=== PATIENT | female | born 1975 ===

== ENCOUNTER → 2019-01-03 21:38 | Outpatient (REF) | payer OTHER, SELFPAY ==
[2019-01-03 22:28] LABS: Add Manual Diff / Slide Review NO; Basophils Absolute Auto 0 /uL (0-100); Basophils Percent Auto 0.6 % (0-2); Eosinophils Absolute Auto 200 /uL (0-450); Eosinophils Percent Auto 3.3 % (2-4); Hematocrit 41.7 % (36-46); Hemoglobin 13.9 g/dL (12.0-16.0); Lymphocytes Absolute Auto 1000 /uL (1100-4500); Lymphocytes Percent Auto 20.1 % (25-40); Mean Corpuscular HGB Conc 33.3 % (30-36); Mean Corpuscular Hemoglobin 31.5 PG (26-34); Mean Corpuscular Volume 94.6 fL (80-100); Monocytes Absolute Auto 500 /uL (0-900); Monocytes Percent Auto 10.2 % (3-14); Neutrophils Absolute Auto 3300 /uL (1500-7000); Neutrophils Percent Auto 65.8 % (50-75); Platelet Count 238 X10^3/uL (150-400); Red Cell Distribution Width 13.9 % (11.6-14.8)
[2019-01-03 22:37] LABS: Alanine Aminotransferase 22 IU/L (9-52); Albumin 4.3 g/dL (3.5-5.0); Albumin Globulin Ratio 1.5 (1.0-2.8); Alkaline Phosphatase 51 U/L (38-126); Aspartate Aminotransferase 20 IU/L (14-36); BUN Creatinine Ratio 15.7 (6-22); Bilirubin Total 0.4 mg/dL (0.2-1.3); Blood Urea Nitrogen 11 mg/dL (7-17); Calcium 9.3 mg/dL (8.4-10.2); Carbon Dioxide 24 mmol/L (22-32); Chloride 102 mmol/L (98-107); Cholesterol 193 mg/dL (140-199); Estimated Glomerular Filt Rate > 60.0 mL/min (>60); Globulin 2.8 g/dL (1.7-4.1); Glucose 88 mg/dL (70-100); HDL Cholesterol 47 mg/dL (40-60); HEMOLYSIS < 15 (0-50); LDL Cholesterol Calculated 127 mg/dL (<100); Potassium 4.6 mmol/L (3.4-5.1); Sodium 137 mmol/L (137-145); Total Protein 7.1 g/dL (6.3-8.2); Triglycerides 97 mg/dL (35-150)
[2019-01-03 23:06] LABS: Free T4, Direct Thyroxine 1.12 ng/dL (0.78-2.19)
[2019-01-03 23:19] LABS: Thyroid Stimulating Hormone 3.56 uIU/mL (0.47-4.68)
[2019-01-06 15:03] LABS: Anti Thyroglobulin Antibody < 1 IU/mL (< 2); Thyroid Peroxidase Antibodies < 1 IU/mL (< 9)
[2019-01-06 17:13] LABS: HIV Ag/Ab, 4th Gen Nonreactive (Nonreactive)
[2019-01-06 17:19] LABS: Syphilis AB Cascading Reflex NEGATIVE (Negative)
[2019-01-07 09:13] LABS: Hepatitis B Surf AB Imm QUANT < 5 mIU/mL (> 9)
[2019-01-07 16:19] LABS: Apolipoprotein B 98 mg/dL (49-103)
== END ==
LOC: LAB 21:38
PROVIDERS: Visit Provider Acupuncturist
DX: Z12.4 Encounter for screening for malignant neoplasm of cervix (principal); Z11.3 Encounter for screening for infections with a predominantly sexual mode of transmission; E03.9 Hypothyroidism, unspecified; Z00.00 Encounter for general adult medical examination without abnormal findings
CPT/HCPCS: 36415; 80053; 80061; 84439; 84443; 84481; 84482; 85025; 86317; 86376; 86703; 86780; 86800